=== PATIENT | female | born 1965 | race Caucasian/White ===

== ENCOUNTER → 2020-11-07 11:55 | Outpatient (BNVA) | payer OTHER, SELFPAY | PROVIDERS: Family Provider Internal Medicine; PCP Internal Medicine; Visit Provider Obstetrics & Gynecology | DX: Z01.419 Encounter for gynecological examination (general) (routine) without abnormal findings (principal) | CPT/HCPCS: 88175 ==

== ENCOUNTER 2025-06-16 22:32 | Emergency (ER) | payer OTHER, SELFPAY ==
[2025-06-16 22:39] VITALS: BP 130/89; PULSE 79; RESP 16; TEMP 36.4; O2SAT 98; BMI 30.4
--- NOTE | 2025-06-16 23:04 | ED_ITS ---
HPI - Skin/Abscess/Foreign Bdy 2 General: Chief complaint: Skin/Abscess/Foreign Body Stated complaint: Possibly celulitis, upper leg rt Time Seen by Provider: 06/16/25 22:46 Source: patient Mode of arrival: ambulatory Limitations: no limitations History of Present Illness: Patient is a 60-year-old female presents emergency department complaining of cellulitis for the past 5 days. States that she was seen at walk-in clinic for redness to her right groin on Wednesday, was started on Augmentin. States since then that the symptoms have gotten worse, she is having worsening pain in the groin, expanding redness, and overall has just felt ill. Does not report any fever but states she has been alternating Motrin and Tylenol so thinks this may be masking the fever. She also reports feeling nauseous but states that she also thinks this might be a side effect of her Augmentin. She has been marking the area of erythema states that she has been noticing it is expanding more rapidly. She thinks Augmentin is not working. Also thinks that may have been a spider bite. MD complaint: other (Cellulitis of right groin region) Onset (ago): day(s) Pain Consistency: other (Getting worse) Associated symptoms: Reports nausea; Deny chills, fever(s) or vomiting Treatments prior to arrival: antibiotic Related Data Home Medications ?Medication ?Instructions ?Recorded ?Confirmed tamoxifen 20 mg tablet 20 mg PO DAILY 11/07/2010/12 Previous Rx's ?Medication ?Instructions ?Recorded clindamycin HCl 300 mg capsule 300 mg PO BID 10 days # 20 caps 06/16/25 Allergies Allergy/AdvReac Type Severity Reaction Status Date / Time Sulfa (Sulfonamide Allergy extreme Verified 11/07/20 10:58 Antibiotics) itchiness, hives Review of Systems 2 General: Reports: 10 or more systems reviewed and unremarkable except in HPI and below Const: Reports: malaise; Denies: fever(s) or chills Card: Denies: chest pain Resp: Denies: dyspnea GI: Reports: nausea; Denies: abdominal pain, vomiting or diarrhea Musc: Denies: extremity pain or joint pain Skin/Breast: Reports: erythema, skin pain, skin tenderness and non-healing lesions; Denies: rash Neuro: Denies: headache(s) PFSH ED 2 PFSH: Medical History Perimenopause Atypical ductal hyperplasia of left breast Found on needle biopsy of the left breast. Excisional biopsy performed with no hyperplasia noted (per patient). Was started on tamoxifen in 07/2017. Surgical History S/P breast biopsy, right (~1985) Status post surgery (~1997) Abdominal wall mass excision. H/O lumpectomy (04/01/17) Dr. Lockett at in [place], [place]. H/O section (04/11/97) Diagnosis: Cephalopelvic disproportion. Performed by Dr. Up at [facility] in [place], [place]. S/P rhinoplasty Family History Other Adopted Social History Smoking and tobacco/nicotine status: never used tobacco/nicotine Alcohol intake: never Substance/Drug Use: never Physical Exam 2 Const: COMMON NORMALS: no acute distress, average body habitus, patient oriented x3, no limitations, healthy appearing, alert and well nourished HENMT: COMMON NORMALS: normocephalic and atraumatic HEAD & SCALP: n ormocephalic and atraumatic Neck/C-Spine: COMMON NORMALS: full ROM, no lymphadenopathy, supple and no meningeal signs Resp: COMMON NORMALS: normal respiratory effort, No use of accessory muscles and clear to auscultation bilaterally AUSCULTATION: clear to auscultation bilaterally Cardio: COMMON NORMALS: regular rate and regular rhythm RATE: regular rate RHYTHM: regular rhythm Extremity: COMMON NORMALS: full ROM and capillary refill normal Neuro: COMMON NORMALS: patient oriented x3 SENSORIUM/ORIENTATION: Yes alert MENINGEAL SIGNS: Yes no meningeal signs Skin: COMMON NORMALS: no wounds and turgor normal NARRATIVE SKIN EXAM: Large area of cellulitis to right groin/proximal thigh anteriorly. Central area of fluctuance with no active drainage. No palpable surrounding lymphadenopathy. GENERAL SKIN EXAM: turgor normal Procedures Abscess I/D Site: other (groin) Side (if applicable): right Local Anesthetic: lidocaine 1% and with epi Amount of anesthesia used (mL): 5 Technique: incised with #11 blade Amount of fluid expressed (mL): 20 Irrigation: Yes Packing used?: none Course 2 Vital Signs: Vital signs: Vital Signs Temperature 97.5 F L 06/16/25 22:39 Pulse Rate 74 06/16/25 23:50 Respiratory Rate 16 06/16/25 23:50 Blood Pressure 124/74 06/16/25 23:50 Pulse Oximetry 94 06/16/25 23:50 Oxygen Delivery Me thod Room Air 06/16/25 22:39 MDM - Skin/Abscess/Foreign Bdy Medicial Decision Making Patient presented with worsening redness and abscess formation to her right groin region after being diagnosed with cellulitis per walk-in clinic on Wednesday and started on Augmentin. Overall feeling ill, did not reporting fevers at home and was noting some nausea but thinks this might have also been from starting the Augmentin. On exam there was a large abscess in the right groin with surrounding cellulitis, which was fluctuant. This was incised with an 11 blade and approximately 20 mL of purulent fluid was expressed. We will also switch to clindamycin, and she is given IV dose here in the emergency department. Pain controlled with morphine, antibiotics sent to pharmacy. Labs were also obtained and reassuring that there was no systemic spread of the infection requiring IV antibiotics in the hospital. Patient feels better after I&D, and will be allowed discharge home with return precautions given. Lab Data 06/16/25 23:09 06/16/25 23:09 Laboratory Results WBC 5.93 10^3/uL (3.29-11.43) 06/16/25 23:09 RBC 4.43 10^6/uL (3.85-5.65) 06/16/25 23:09 Hgb 12.60 g/dL (11.27-16.99) 06/16/25 23:09 Hct 38.3 % (36-47) 06/16/25 23:09 MCV 86.5 fl (85-98) 06/16/25 23:09 MCH 28.4 pg (27-33) 06/16/25 23: MCHC 32.9 g/dL (30-55) 06/16/25 23:09 RDW 13.3 % (12.1-15.1) 06/16/25 23:09 Plt Count 192 10^3/cmm (157-399) 06/16/25 23:09 MPV 9.7 fL (7.4-10.4) 06/16/25 23:09 Neut % (Auto) 69.8 % 06/16/25 23:09 Lymph % (Auto) 21.6 % 06/16/25 23:09 [place] % (Auto) 7.1 % 06/16/25 23:09 Eos % (Auto) 1.0 % 06/16/25 23:09 Baso % (Auto) 0.3 % 06/16/25 23:09 Neut # (Auto) 4.14 10^3/uL (1.8-7.7) 06/16/25 23:09 Lymph # (Auto) 1.3 10^3/uL (0.8-4.8) 06/16/25 23:09 [place] # (Auto) 0.4 10^3/uL (0.2-0.9) 06/16/25 23:09 Eos # (Auto) 0.1 10^3/uL (0.0-0.8) 06/16/25 23:09 Baso # (Auto) 0.0 10^3/uL (0.0-0.1) 06/16/25 23:09 Nucleated RBC % (auto) 0 % 06/16/25 23:09 Nucleated RBCs # 0.0 /100WBC 06/16/25 23:09 ESR 22 mm/hr (0-15) H 06/16/25 23:09 Sodium 140 mmol/L (136-145) 06/16/25 23:09 Potassium 4.0 mmol/L (3.5-5.1) 06/16/25 23:09 Chloride 104 mmol/L (98-107) 06/16/25 23:09 Carbon Dioxide 27 mmol/L (22-29) 06/16/25 23:09 Anion Gap 13.0 (5-19) 06/16/25 23:09 BUN 14 mg/dL (6-20) 06/16/25 23:09 Creatinine 0.9 mg/dL (0.5-0.9) 06/16/25 23:09 GFR Calculation 64.3 mL/min (90-130) L 06/16/25 23:09 Glucose 132 mg/dL (65-115) H 06/16/25 23:09 Calculated Osmolality 292 mOsm/kg (285-295) 06/16/25 23:09 Calcium 9.3 mg/dL (8.5-10.5) 06/16/25 23:09 Total Bilirubin 0.2 mg/dL (0.15-1.2) 06/16/25 23:09 AST 17 U/L (0-32) 06/16/25 23:09 ALT 11 U/L (0-33) 06/16/25 23:09 Alkaline Phosphatase 109 U/L (35-105) H 06/16/25 23:09 C-Reactive Protein 14.7 mg/L (0.0-4.9) H 06/16/25 23:09 Total Protein 7.1 g/dL (6.6-8.7) 06/16/25 23:09 Albumin 3.9 g/dL (3.5-5.2) 06/16/25 23:09 Globulin 3.2 g/dL (1.3-4.6) 06/16/25 23:09 No radiology studies performed this visit Discharge Plan Discharge Patient Disposition: Home Clinical Impression: Abscess of groin, right Condition: Stable Prescriptions: New clindamycin HCl 300 mg capsule 300 mg PO BID 10 Days Qty: 20 0RF No Action tamoxifen 20 mg tablet 20 mg PO DAILY Discharge Orders: Discharge ED (Routine); Ordered 06/16/25 Ordered By: Warren Case Referrals: Caroline Sue PA [Primary Care Provider, [facility]] Patient Instructions: Patient Portal & Gem Instructions Activity Restrictions/Additional Instructions: Abscess Discharge Instructions Diagnosis and Treatment Summary: You were treated in the emergency department for a skin abscess (collection of pus) in your right groin. The abscess was drained with a small incision, and you received intravenous clindamycin. No wound packing was required, as evidence shows that packing does not improve healing and may increase pain for uncomplicated abscesses.[1] https://Paymetric.Orph[employer].com/maryam/article- lookup/doi/10.1093/maryam/jmx448 [2] https://www.nej.org/doi/f ull/10.1056/PERCgg1614063 You are being switched from amoxicillin-clavulanate to clindamycin 300 mg by mouth twice daily for 10 days, as clindamycin is effective against common bacteria causing skin abscesses, including MRSA.[3] https://www.nejm.org/doi/full/10.1056/TFPJpq5069409 [2] https://www.nejm.org/doi/full/10.1056/WVOSlt4222721 A few doses of hydrocodone- acetaminophen were prescribed for breakthrough pain. Wound Care Instructions: - Keep the wound clean and dry. - Change the dressing once daily or if it becomes wet or soiled. Wash your hands before and after touching the wound or changing the dressing. - You may shower, but avoid soaking the wound (no baths, swimming, or hot tubs) until it is fully healed. - Monitor the wound for signs of healing: it should gradually become less red, swollen, and tender over the next several days. Medications: - Clindamycin 300 mg: Take one tablet by mouth every 12 hours for 10 days. Finish the entire course, even if you feel better. - Common side effects include diarrhea, nausea, and rash. If you develop severe diarrhea (especially with blood or mucus), stop the medication and seek medical attention, as this can be a sign of a serious infection called C. difficile. [ 3] https://www.nejm.org/doi/full/10.1056/QMWGfd7406257 - Hydrocodone-acetaminophen ([place]): Take only as needed for severe pain, and do not exceed the prescribed amount. Do not drive or operate heavy machinery while taking this medication. Activity: - Resume normal activities as tolerated, but avoid strenuous exercise or activities that may irritate the wound until it is healed. Follow-Up: - Schedule a follow-up appointment with your primary care provider or as directed within 48?72 hours to assess wound healing and response to antibiotics. [1] https://Paymetric.Orphazyme.com/maryam/article-lookup/doi/10.1093/maryam/wra445 [2] https://www.nejm.org/doi/full/10.1056/PHZLul2719001 Strict Return Precautions: Return to the emergency department or contact your healthcare provider immediately if you experience any of the following: - Increasing redness, swelling, or pain at the wound site - Pus or foul-smelling drainage from the wound - Fever (temperature > 100.4?F / 38?C) or chills - Red streaks spreading from the wound - Difficulty moving your leg or severe pain - Signs of an allergic reaction to medication (rash, swelling, difficulty breathing) - Severe or persistent diarrhea Infection Control: - Wash your hands frequently, especially after touching the wound. - Do not share towels, clothing, or personal items until the wound is fully healed. - Dispose of dressings in a sealed plastic bag. Additional Information: - Antibiotics are not always required after abscess drainage, but are recommended in certain situations, such as abscesses in the groin, presence of systemic symptoms, or risk factors for more severe infection. [1] https://Paymetric.Orph[employer]yme.[employer]/maryam/article-lookup/doi/10.1093/maryam/asb504 [3] https://www.nejm.org/doi/full/10.1056/PJPDob3750544 [2] https://www.nejm.org/doi/full/10.1056/ZMDOjb9901611 - Clindamycin and trimethoprim-sulfamethoxazole are both effective; clindamycin may reduce the risk of new infections but is associated with a higher rate of mild gastrointestinal side effects.[3] https://www.nejm.org/doi/full/10.1056/WAIElf0551944 If you have any questions or concerns, contact your healthcare provider. References * Practice Guidelines for the Diagnosis and Management of Skin and Soft Tissue Infections: 2014 Update by the Infectious Diseases Society of [place] https://Paymetric.Orphaz[employer]/maryam/article-lookup/doi/10.1093/maryam/vyo374 . Silvestre POWERS, Brian AL, Nereida HF, et al. Clinical Infectious Diseases : An Official Publication of the Infectious Diseases Society of [place]. 2014;59(2):147-59. doi:10.1093/maryam/lti824. * Management of Skin Abscesses in the Era of Methicillin-Resistant Staphylococcus aureus https://www.nejm.org/doi/full/10.1056/HECCui4108216 . AJ, Dyllan DA. The [place] Journal of Medicine. 2014;370(11):1039- 47. doi:10.1056/MTVYmi9756577. * A Placebo-Controlled Trial of Antibiotics for Smaller Skin Abscesses https://www.nejm.org/doi/full/10.1056/WMNTmk7507390 . Henrietta RS, Alcala LG, Dominga L, et al. The [place] Journal of Medicine. 2017;376(26):2545- 2555. doi:10.1056/FCTPqb4082683. Print Language: Emirati Coding Level of Care Code ED Coat Feller for Parag Llanos
[2025-06-16 23:14] LABS: Hematocrit 38.3 % (36-47); Hemoglobin 12.60 g/dL (11.27-16.99); Mean Corpuscular HGB Conc 32.9 g/dL (30-55); Mean Corpuscular Hemoglobin 28.4 pg (27-33); Mean Corpuscular Volume 86.5 fl (85-98); Nucleated Red Blood Cells % 0 %; Platelet Count 192 10^3/cmm (157-399); Red Blood Count 4.43 10^6/uL (3.85-5.65); White Blood Count 5.93 10^3/uL (3.29-11.43)
[2025-06-16] MEDS: ondansetron 2 mg/ML SDV 2 mL 4 MG IVP (23:17)
[2025-06-16] MEDS: morphine 4 mg/mL SDV 1 mL IVP (23:18)
[2025-06-16 23:21] VITALS: BP 132/81; PULSE 72; RESP 16; O2SAT 95
[2025-06-16 23:32] LABS: Alanine Aminotransferase 11 U/L (0-33); Albumin Level 3.9 g/dL (3.5-5.2); Alkaline Phosphatase 109 U/L (35-105); Anion Gap 13.0 (5-19); Aspartate Amino Transferase 17 U/L (0-32); Blood Urea Nitrogen 14 mg/dL (6-20); Calcium 9.3 mg/dL (8.5-10.5); Carbon Dioxide 27 mmol/L (22-29); Chloride 104 mmol/L (98-107); Creatinine Clr Calc Pharmacy 67.3844; Globulin 3.2 g/dL (1.3-4.6); Glucose 132 mg/dL (65-115); Osmolality Calculated 292 mOsm/kg (285-295); Potassium 4.0 mmol/L (3.5-5.1); Sodium 140 mmol/L (136-145); Total Protein 7.1 g/dL (6.6-8.7)
[2025-06-16 23:50] VITALS: BP 124/74; PULSE 74; RESP 16; O2SAT 94
== END 2025-06-16 23:58 | disposition home or self-care (01) ==
PROVIDERS: Emergency Provider Physician Assistant; PCP Physician Assistant
DX: L02.214 Cutaneous abscess of groin (principal)
CPT/HCPCS: 10060; 36415; 80053; 85025; 85651; 86140; 96374; 96375; 99284; J2270; J2405; J3490

== ENCOUNTER 2025-07-20 13:49 | Emergency (ER) | payer OTHER, SELFPAY ==
[2025-07-20 13:52] VITALS: BP 114/67; PULSE 121; RESP 18; TEMP 36.6; O2SAT 99
--- NOTE | 2025-07-20 15:46 | CTR_ITS ---
PROCEDURE INFORMATION: Exam: CT Abdomen And Pelvis With Contrast Exam date and time: 07/20/2025 4:29 PM Age: 60 years old Clinical indication: Other: Diffuse abd pain/diarrhea TECHNIQUE: Imaging protocol: Computed tomography of the abdomen and pelvis with contrast. Radiation optimization: All CT scans at this facility use at least one of these dose optimization techniques: automated exposure control; mA and/or kV adjustment per patient size (includes targeted exams where dose is matched to clinical indication); or iterative reconstruction. Contrast material: OMNI 350; Contrast volume: 100 ml; Contrast route: INTRAVENOUS (IV); COMPARISON: CR XR chest 2V* [id number] 03/21/2019 12:45 PM RADIATION DOSE METRICS: Total DLP (mGy-cm): 714.67 FINDINGS: Liver: Subcentimeter hepatic hypodensities are too small to characterize. Gallbladder and biliary ducts: Two non dependent 4 mm densities are noted in the gallbladder lumen. No pericholecystic inflammatory changes. There is no evidence of biliary ductal dilation. Pancreas: The pancreas is normal. No mass. Spleen: The spleen is normal. Adrenal glands: Normal. No mass. Kidneys and ureters: Subcentimeter right renal cyst. No suspicious renal mass. No hydronephrosis. Stomach and bowel: Diffuse colonic mural thickening most marked in the rectosigmoid. Moderate fat stranding surrounds the thickened portions of the distal sigmoid colon and rectum. No pericolonic fluid collection to suggest abscess. Bowel caliber is normal. Appendix: Normal appendix. Intraperitoneal space: No free intraperitoneal fluid or gas. Moderate presacral edema is present relating to rectum inflammation. Vasculature: Aortic caliber is normal. Lymph nodes: Unremarkable. No enlarged lymph nodes. Urinary bladder: Mild, nonspecific bladder wall thickening, which may be due to underdistention. Reproductive: Uterus is unremarkable. No suspicious adnexal lesion seen. Bones/joints: No acute abnormality. Soft tissues: Unremarkable. CT/CT abdomen pelvis w con* [id number] IMPRESSION: 1. Pancolitis, most marked in the rectosigmoid region. Inflammatory and infectious etiologies should be considered. 2. Two non dependent 4 mm densities are noted in the gallbladder lumen. Gallbladder polyps are likely, which should be confirmed with non emergent ultrasound. 3. Subcentimeter hepatic hypodensities are too small to characterize. In a low-risk patient, this is most likely to be benign and no further follow-up is recommended. In a high-risk patient, follow-up MRI in 3-6 months is recommended (or earlier if warranted by the patient's specific clinical circumstances). (Reference: Theresa) COMMENTS: Consistent with the [place] [employer]'s Incidental Findings Committee white paper (J Am Gunnar Radiol 2018): Any incidental renal lesion less than 1 cm or classified as too small to characterize, or any incidental cystic renal lesion characterized as simple-appearing, is likely benign. No follow-up imaging is recommended for these lesions per consensus recommendations based on imaging criteria. REFERENCES: Theresa VICTORIA, et al. Management of Incidental Liver Lesions on CT: A White Paper of the ACR Incidental Findings Committee. J Am Gunnar Radiol. 2017;14(11):9590-5176.
--- NOTE | 2025-07-20 15:50 | ED_ITS ---
Documented by User: KALIA Loomis 07/21/25 00:47 HPI - Abdominal Pain 2 General: Chief Complaint: Abdominal Pain Stated Complaint: N,D ABD Pain Time Seen by Provider: 07/20/25 15:08 Source: patient Mode of arrival: ambulatory Limitations: no limitations History of Present Illness: Patient is a 60-year-old female with no significant pertinent past medical history reporting to the emergency department complaining of abdominal cramping and diarrhea for the past 3 days. States that the diarrhea has appeared very mucousy and she has had 2 many episodes to count. Denies any vomiting, but notes persistent nausea. She has been on multiple different antibiotics recently secondary to cellulitis and previous abscess, of which she was seen here in the emergency department for. Recently she notes that she has been running elevated temperatures, she is afebrile at this time. Denies any sick contact exposure. States that the abdominal pain is diffuse and will move around. History of section but no other abdominal surgeries reported. States that anytime she eats or drinks something it will exacerbate her diarrhea. She is tachycardic with triage, appearing in mild acute distress secondary to abdominal symptoms, and states she has had 2 episodes of diarrhea since coming into the emergency department. Otherwise nontoxic-appearing. Further denies any chest pain, shortness of breath, hematochezia or melena, or chills. MD elicited complaint: abdominal pain and other (Nausea/diarrhea) Pertinent past history: none Onset (ago): day(s) (3) Pain Consistency: constant Location: Diffuse Severity: moderate Quality: cramping Radiation: none Migration to: no migration Exacerbating factors: eating and other (Drinking) Relieving factors: nothing Context: recent antibiotic use Associated Symptoms: Reports change in stool character, GI cramping, diarrhea, fever(s) and nausea; Denies bloating, chills, constipation, dysuria, hematochezia, melena and vomiting Related Data Home Medications ?Medication ?Instructions ?Recorded ?Confirmed loratadine 10 mg tablet (Claritin) 10 mg PO DAILY PRN allergies 07/20/25 07/20/25 Previous Rx's ?Medication ?Instructions ?Recorded ondansetron 4 mg disintegrating 4 mg PO TID PRN nausea and 07/20/25 tablet vomiting #60 tabs vancomycin 125 mg capsule 125 mg PO Q6H 10 days #40 ca ps 07/20/25 Allergies Allergy/AdvReac Type Severity Reaction Status Date / Time Sulfa (Sulfonamide Allergy extreme Verified 11/07/20 10:58 Antibiotics) itchiness, hives Review of Systems 2 General: Reports: 10 or more systems reviewed and unremarkable except in HPI and below Const: Reports: fever(s) and change in appetite; Denies: chills, change in weight, fatigue, malaise or diaphoresis ENMT: Denies: throat pain or hoarseness Card: Denies: chest pain, palpitations or lightheadedness Resp: Denies: dyspnea, productive cough or wheezing GI: Reports: abdominal pain, nausea, diarrhea, GI cramping, change in stool character and mucus in stool; Denies: vomiting, constipation, bloating, hematochezia or melena : Denies: flank pain, difficulty voiding, dysuria, urinary frequency or urinary urgency Musc: Denies: neck pain or back pain Skin/Breast: Denies: rash or new lesions Neuro: Denies: headache(s) or dizziness PFSH ED 2 PFSH: Medical History Perimenopause Atypical ductal hyperplasia of left breast Found on needle biopsy of the left breast. Excisional biopsy performed with no hyperplasia noted (per patient). Was started on tamoxifen in 07/2017. Surgical History S/P breast biopsy, right (~1985) Status post surgery (~1997) Abdominal wall mass excision. H/O lumpectomy (04/01/17) Dr. Lockett at [facility] in [place], [place]. H/O section (04/11/97) Diagnosis: Cephalopelvic disproportion. [place] [facility] [place] S/P rhinoplasty Family History Other Adopted Social History Smoking and tobacco/nicotine status: never used tobacco/nicotine Alcohol intake: never Substance/Drug Use: never Physical Exam 2 Const: COMMON NORMALS: average body habitus, patient oriented x3, no limitations, healthy appearing, alert and well nourished GENERAL APPEARANCE: cooperative ORIENTATION/CONSCIOUSNESS: Yes awake OTHER: Mild distress secondary to abdominal cramping, otherwise nontoxic-appearing Neck/C-Spine: COMMON NORMALS: full ROM, supple and no meningeal signs Resp: COMMON NORMALS: normal respiratory effort, No retractions, No use of accessory muscles and clear to auscultation bilaterally AUSCULTATION: clear to auscultation bilaterally, no crackles, no rales, no rhonchi and no wheezes Cardio: COMMON NORMALS: regular rate, regular rhythm, No gallops present (Cardio), No clicks present (Cardio), No murmurs present (Cardio) and No rub (Cardio) RATE: regular rate RHYTHM: regular rhythm GI: COMMON NORMALS: Normal to inspection, nondistended, normoactive bowel sounds present, Soft to palpation, No hepatosplenomegaly present and no masses AUSCULTATION: Yes normoactive bowel sounds PALPATION: Yes Soft to palpation, Yes Tenderness to palpation present (GI) (Mild diffuse), No Guarding due to palpation present (GI), No Rigid due to palpation and Yes No hepatosplenomegaly present RECTAL EXAM: deferred Extremity: COMMON NORMALS: normal to inspection and full ROM Neuro: COMMON NORMALS: patient oriented x3, moves all extremities, no focal motor deficits and no sensory deficits noted SENSORIUM/ORIENTATION: Yes alert MENINGEAL SIGNS: Yes no meningeal signs Psych: COMMON NORMALS: mental status grossly normal, cooperative and speech normal SPEECH: Yes normal speech Skin: COMMON NORMALS: no rashes or lesions noted GENERAL SKIN EXAM: no rashes or lesions noted Course 2 Vital Signs: Vital signs: Vital Signs Temperature 97.9 F 07/20/25 13:52 Pulse Rate 104 H 07/20/25 18:39 Respiratory Rate 16 07/20/25 17:25 Blood Pressure 151/91 07/20/25 18:39 Pulse Oximetry 98 07/20/25 18:39 Oxygen Delivery Me thod Room Air 07/20/25 13:52 MDM - Abdominal Pain Medical Decision Making This patient presents to the emergency department with persistent diarrhea and abdominal cramping, notable history for frequent antibiotic use over the past month or so for cellulitis and abscess of the groin. Tachycardic on arrival and mildly ill-appearing though heart rate improves after fluids as I suspect element of hypovolemia. However metabolic panel does not show any significant electrolyte derangement, her white blood cell count is not significantly elevated. Urinalysis is clean. However stool sample is showing positivity for C. difficile, and she will be started on appropriate regimen of vancomycin p.o. CT is showing pancolitis with no other acute process. She does feel safe for discharge home and feels better after fluids and nausea medications here, I will send nausea medications to the pharmacy. She is given strict return precautions, and all of the questions and concerns addressed at this time. Lab Data 07/20/25 16:08 07/20/25 16:08 Labs/Radiology: Radiology Impressions Abdomen/Pelvis CT 07/20/25 15:46 IMPRESSION: 1. Pancolitis, most marked in the rectosigmoid region. Inflammatory and infectious etiologies should be considered. 2. Two non dependent 4 mm densities are noted in the gallbladder lumen. Gallbladder polyps are likely, which should be confirmed with non emergent ultrasound. 3. Subcentimeter hepatic hypodensities are too small to characterize. In a low-risk patient, this is most likely to be benign and no further follow-up is recommended. In a high-risk patient, follow-up MRI in 3-6 months is recommended (or earlier if warranted by the patient's specific clinical circumstances). (Reference: Theresa) COMMENTS: Consistent with the [employer]'s Incidental Findings Committee white paper (J Am Gunnar Radiol 2018): Any incidental renal lesion less than 1 cm or classified as too small to characterize, or any incidental cystic renal lesion characterized as simple-appearing, is likely benign. No follow-up imaging is recommended for these lesions per consensus recommendations based on imaging criteria. REFERENCES: Theresa VICTORIA, et al. Management of Incidental Liver Lesions on CT: A White Paper of the ACR Incidental Findings Committee. J Am Gunnar Radiol. 2017;14(11):9468-1119. Laboratory Results WBC 9.07 10^3/uL (3.29-11.43) 07/20/25 16:08 Corrected WBC Cancelled 07/20/25 14:35 RBC 5.00 10^6/uL (3.85-5.65) 07/20/25 16:08 Hgb 14.10 g/dL (11.27-16.99) 07/20/25 16:08 Hct 42.5 % (36-47) 07/20/25 16:08 MCV 85.0 fl (85-98) 07/20/25 16:08 MCH 28.2 pg (27-33) 07/20/25 16:08 MCHC 33.2 g/dL (30-55) 07/20/25 16:08 RDW 13.4 % (12.1-15.1) 07/20/25 16:08 Plt Count 180 10^3/cmm (157-399) 07/20/25 16:08 MPV 9.8 fL (7.4-10.4) 07/20/25 16:08 Gran % Cancelled 07/20/25 14:35 Neut % (Auto) 87.0 % 07/20/25 16:08 Lymph % (Auto) 6.2 % 07/20/25 16:08 Terry % (Auto) 6.3 % 07/20/25 16:08 Eos % (Auto) 0.0 % 07/20/25 16:08 Baso % (Auto) 0.3 % 07/20/25 16:08 Neut # (Auto) 7.89 10^3/uL (1.8-7.7) H 07/20/25 16:08 Lymph # (Auto) 0.6 10^3/uL (0.8-4.8) L 07/20/25 16:08 Terry # (Auto) 0.6 10^3/uL (0.2-0.9) 07/20/25 16:08 Eos # (Auto) 0.0 10^3/uL (0.0-0.8) 07/20/25 16:08 Baso # (Auto) 0.0 10^3/uL (0.0-0.1) 07/20/25 16:08 Absolute Gran (auto) Cancelled 07/20/25 14:35 Nucleated RBC % (auto) 0 % 07/20/25 16:08 Nucleated RBCs # 0.0 /100WBC 07/20/25 16:08 Sodium 139 mmol/L (136-145) 07/20/25 16:08 Potassium 3.6 mmol/L (3.5-5.1) 07/20/25 16:08 Chloride 104 mmol/L (98-107) 07/20/25 16:08 Carbon Dioxide 16 mmol/L (22-29) L 07/20/25 16:08 Anion Gap 22.6 (5-19) H 07/20/25 16:08 BUN 18 mg/dL (6-20) 07/20/25 16:08 Creatinine 0.7 mg/dL (0.5-0.9) 07/20/25 16:08 GFR Calculation 85.9 mL/min (90-130) L 07/20/25 16:08 Glucose 93 mg/dL (65-115) 07/20/25 16:08 Calculated Osmolality 290 mOsm/kg (285-295) 07/20/25 16:08 Calcium 9.1 mg/dL (8.5-10.5) 07/20/25 16:08 Total Bilirubin 0.4 mg/dL (0.15-1.2) 07/20/25 16:08 AST 20 U/L (0-32) 07/20/25 16:08 ALT 12 U/L (0-33) 07/20/25 16:08 Alkaline Phosphatase 99 U/L (35-105) 07/20/25 16:08 Total Protein 7.0 g/dL (6.6-8.7) 07/20/25 16:08 Albumin 3.9 g/dL (3.5-5.2) 07/20/25 16:08 Globulin 3.1 g/dL (1.3-4.6) 07/20/25 16:08 Lipase 13 U/L (13-60) 07/20/25 16:08 Urine Color Yellow (Yellow) 07/20/25 17:03 Urine Appearance Clear (CLEAR) 07/20/25 17:03 Urine pH 5.5 (5-7) 07/20/25 17:03 Ur Specific [place] 1.075 (1.005-1.030) H 07/20/25 17:03 Urine Protein 1+ (Negative) A 07/20/25 17:03 Urine Glucose (UA) Negative (Normal) 07/20/25 17:03 Urine Ketones 4+ (Negative) 07/20/25 17:03 Urine Blood Trace (Negative) A 07/20/25 17:03 Urine Nitrate Negative (Negative) 07/20/25 17:03 Urine Bilirubin Negative (Negative) 07/20/25 17:03 Urine Urobilinogen 0.2 mg/dL (Negative) 07/20/25 17:03 Ur Leukocyte Esterase Negative (Negative) 07/20/25 17:03 Urine RBC 0-4 /hpf (0-2) H 07/20/25 17:03 Urine WBC 0-4 /hpf (0-5) H 07/20/25 17:03 Ur Squamous Epith Cells 15-25 /hpf (0-5) H 07/20/25 17:03 Amorphous Sediment Not Reportable 07/20/25 17:03 Urine Bacteria Trace /hpf (NONE) 07/20/25 17:03 C. difficile (PCR) Positive (Negative) H 07/20/25 17:03 C.difficile Tox Confrm Positive (Negative) H 07/20/25 17:03 Influenza A (PCR) Negative (Negative) 07/20/25 15:44 Influenza Type B (PCR) Negative (Negative) 07/20/25 15:44 RSV (PCR) Negative (Negative) 07/20/25 15:44 SARS-CoV-2 (PCR) Negative (Negative) 07/20/25 15:44 All radiology interpretation(s) finalized by discharge Discharge Plan Discharge Patient Disposition: Home Clinical Impression: C. difficile colitis Condition: Stable Prescriptions: New vancomycin 125 mg capsule 125 mg PO Q6H 10 Days Qty: 40 0RF ondansetron 4 mg tablet,disintegrating 4 mg PO TID PRN (Reason: nausea and vomiting) Qty: 60 0RF No Action loratadine [Claritin] 10 mg Tablet 10 mg PO DAILY PRN (Reason: allergies) Discharge Orders: Discharge ED (Routine); Ordered 07/20/25 Ordered By: Warren Case Referrals: Caroline Sue PA [Primary Care Provider, [facility]] Patient Instructions: Patient Portal & Gem Instructions Activity Restrictions/Additional Instructions: C. difficile Discharge Instructions You have been diagnosed with Clostridioides difficile colitis, a type of infection in your colon that causes diarrhea and abdominal discomfort. This infection is often linked to recent antibiotic use or hospital stays, which can upset the normal balance of bacteria in your gut and allow C. difficile to grow. Treatment Plan: - Take oral vancomycin 125 mg by mouth four times a day for 10 days. Finish the entire course, even if you start feeling better. - For nausea, take ondansetron (Zofran) 4 mg as prescribed. - If you have pain, you may use acetaminophen (Tylenol) as needed. Avoid medications like ibuprofen unless approved by your doctor, and do not use anti- diarrheal medicines (like loperamide) unless specifically instructed, as these can worsen your condition. Symptom Management: - Drink plenty of fluids to prevent dehydration. - Eat small, bland meals (such as rice, bananas, toast) until your symptoms improve. - Rest as needed. Infection Control and Contact Precautions: - Wash your hands often with soap and water, especially after using the bathroom and before eating. Alcohol-based hand sanitizers are less effective against C. difficile spores. - Clean surfaces in your home (like toilets, sinks, and doorknobs) with a bleach-based grain cleaner. - Use a separate bathroom if possible. If sharing, clean it after each use. - Family members and caregivers should wear gloves when helping with personal care and wash hands thoroughly afterward. About Clostridioides difficile: - C. difficile is a bacterium that can cause diarrhea and more serious colon problems. It spreads easily in healthcare settings and through contaminated surfaces. - The infection often happens after taking antibiotics, which can kill good bacteria and let C. difficile grow. - Most people recover with proper treatment, but some may have recurrences. Let your doctor know if symptoms return after finishing your medication. When to Seek Help: - Call your doctor or go to the emergency room if you have severe abdominal pain, blood in your stool, high fever, or signs of dehydration (such as dizziness, dry mouth, or not urinating). Prevention Tips: - Only take antibiotics when necessary and as prescribed. - Practice good hand hygiene. - Clean shared surfaces regularly. If you have any questions or concerns, contact your healthcare provider. Print Language: Togolese Coding Level of Care Code ED Mobile [employer] Fwd Documented by User: Spencer Mckeon DO 07/21/25 05:59 HPI - Abdominal Pain 2 General: Chief Complaint: Abdominal Pain Stated Complaint: N,D ABD Pain Time Seen by Provider: 07/20/25 15:08 Related Data Home Medications ?Medication ?Instructions ?Recorded ?Confirmed loratadine 10 mg tablet (Claritin) 10 mg PO DAILY PRN allergies 07/20/25 07/20/25 Previous Rx's ?Medication ?Instructions ?Recorded ondansetron 4 mg disintegrating 4 mg PO TID PRN nausea and 07/20/25 tablet vomiting #60 tabs vancomycin 125 mg capsule 125 mg PO Q6H 10 days #40 ca ps 07/20/25 Allergies Allergy/AdvReac Type Severity Reaction Status Date / Time Sulfa (Sulfonamide Allergy extreme Verified 11/07/20 10:58 Antibiotics) itchiness, hives PFSH ED 2 PFSH: Medical History Perimenopause Atypical ductal hyperplasia of left breast Found on needle biopsy of the left breast. Excisional biopsy performed with no hyperplasia noted (per patient). Was started on tamoxifen in 07/2017. Surgical History S/P breast biopsy, right (~1985) Status post surgery (~1997) Abdominal wall mass excision. H/O lumpectomy (04/01/17) Dr. Lockett at [facility] in [place], [place]. H/O section (04/11/97) Diagnosis: Cephalopelvic disproportion. [place] [facility] [place] S/P rhinoplasty Family History Other Adopted Social History Smoking and tobacco/nicotine status: never used tobacco/nicotine Alcohol intake: never Substance/Drug Use: never Course 2 Vital Signs: Vital signs: Vital Signs Temperature 97.9 F 07/20/25 13:52 Pulse Rate 104 H 07/20/25 18:39 Respiratory Rate 16 07/20/25 17:25 Blood Pressure 151/91 07/20/25 18:39 Pulse Oximetry 98 07/20/25 18:39 Oxygen Delivery Me thod Room Air 07/20/25 13:52 MDM - Abdominal Pain Medical Decision Making This patient presents to the emergency department with persistent diarrhea and abdominal cramping, notable history for frequent antibiotic use over the past month or so for cellulitis and abscess of the groin. Tachycardic on arrival and mildly ill-appearing though heart rate improves after fluids as I suspect element of hypovolemia. However metabolic panel does not show any significant electrolyte derangement, her white blood cell count is not significantly elevated. Urinalysis is clean. However stool sample is showing positivity for C. difficile, and she will be started on appropriate regimen of vancomycin p.o. CT is showing pancolitis with no other acute process. She does feel safe for discharge home and feels better after fluids and nausea medications here, I will send nausea medications to the pharmacy. She is given strict return precautions, and all of the questions and concerns addressed at this time. Chart reviewed and patient discussed with midlevel. Agree with assessment and plan. Lab Data 07/20/25 16:08 07/20/25 16:08 Labs/Radiology: Radiology Impressions Abdomen/Pelvis CT 07/20/25 15:46 IMPRESSION: 1. Pancolitis, most marked in the rectosigmoid region. Inflammatory and infectious etiologies should be considered. 2. Two non dependent 4 mm densities are noted in the gallbladder lumen. Gallbladder polyps are likely, which should be confirmed with non emergent ultrasound. 3. Subcentimeter hepatic hypodensities are too small to characterize. In a low-risk patient, this is most likely to be benign and no further follow-up is recommended. In a high-risk patient, follow-up MRI in 3-6 months is recommended (or earlier if warranted by the patient's specific clinical circumstances). (Reference: Theresa) COMMENTS: Consistent with the [employer]'s Incidental Findings Committee white paper (J Am Gunnar Radiol 2018): Any incidental renal lesion less than 1 cm or classified as too small to characterize, or any incidental cystic renal lesion characterized as simple-appearing, is likely benign. No follow-up imaging is recommended for these lesions per consensus recommendations based on imaging criteria. REFERENCES: Theresa VICTORIA, et al. Management of Incidental Liver Lesions on CT: A White Paper of the ACR Incidental Findings Committee. J Am Gunnar Radiol. 2017;14(11):1181-9205. Laboratory Results WBC 9.07 10^3/uL (3.29-11.43) 07/20/25 16:08 Corrected WBC Cancelled 07/20/25 14:35 RBC 5.00 10^6/uL (3.85-5.65) 07/20/25 16:08 Hgb 14.10 g/dL (11.27-16.99) 07/20/25 16:08 Hct 42.5 % (36-47) 07/20/25 16:08 MCV 85.0 fl (85-98) 07/20/25 16:08 MCH 28.2 pg (27-33) 07/20/25 16:08 MCHC 33.2 g/dL (30-55) 07/20/25 16:08 RDW 13.4 % (12.1-15.1) 07/20/25 16:08 Plt Count 180 10^3/cmm (157-399) 07/20/25 16:08 MPV 9.8 fL (7.4-10.4) 07/20/25 16:08 Gran % Cancelled 07/20/25 14:35 Neut % (Auto) 87.0 % 07/20/25 16:08 Lymph % (Auto) 6.2 % 07/20/25 16:08 Terry % (Auto) 6.3 % 07/20/25 16:08 Eos % (Auto) 0.0 % 07/20/25 16:08 Baso % (Auto) 0.3 % 07/20/25 16:08 Neut # (Auto) 7.89 10^3/uL (1.8-7.7) H 07/20/25 16:08 Lymph # (Auto) 0.6 10^3/uL (0.8-4.8) L 07/20/25 16:08 Terry # (Auto) 0.6 10^3/uL (0.2-0.9) 07/20/25 16:08 Eos # (Auto) 0.0 10^3/uL (0.0-0.8) 07/20/25 16:08 Baso # (Auto) 0.0 10^3/uL (0.0-0.1) 07/20/25 16:08 Absolute Gran (auto) Cancelled 07/20/25 14:35 Nucleated RBC % (auto) 0 % 07/20/25 16:08 Nucleated RBCs # 0.0 /100WBC 07/20/25 16:08 Sodium 139 mmol/L (136-145) 07/20/25 16:08 Potassium 3.6 mmol/L (3.5-5.1) 07/20/25 16:08 Chloride 104 mmol/L (98-107) 07/20/25 16:08 Carbon Dioxide 16 mmol/L (22-29) L 07/20/25 16:08 Anion Gap 22.6 (5-19) H 07/20/25 16:08 BUN 18 mg/dL (6-20) 07/20/25 16:08 Creatinine 0.7 mg/dL (0.5-0.9) 07/20/25 16:08 GFR Calculation 85.9 mL/min (90-130) L 07/20/25 16:08 Glucose 93 mg/dL (65-115) 07/20/25 16:08 Calculated Osmolality 290 mOsm/kg (285-295) 07/20/25 16:08 Calcium 9.1 mg/dL (8.5-10.5) 07/20/25 16:08 Total Bilirubin 0.4 mg/dL (0.15-1.2) 07/20/25 16:08 AST 20 U/L (0-32) 07/20/25 16:08 ALT 12 U/L (0-33) 07/20/25 16:08 Alkaline Phosphatase 99 U/L (35-105) 07/20/25 16:08 Total Protein 7.0 g/dL (6.6-8.7) 07/20/25 16:08 Albumin 3.9 g/dL (3.5-5.2) 07/20/25 16:08 Globulin 3.1 g/dL (1.3-4.6) 07/20/25 16:08 Lipase 13 U/L (13-60) 07/20/25 16:08 Urine Color Yellow (Yellow) 07/20/25 17:03 Urine Appearance Clear (CLEAR) 07/20/25 17:03 Urine pH 5.5 (5-7) 07/20/25 17:03 Ur Specific [place] 1.075 (1.005-1.030) H 07/20/25 17:03 Urine Protein 1+ (Negative) A 07/20/25 17:03 Urine Glucose (UA) Negative (Normal) 07/20/25 17:03 Urine Ketones 4+ (Negative) 07/20/25 17:03 Urine Blood Trace (Negative) A 07/20/25 17:03 Urine Nitrate Negative (Negative) 07/20/25 17:03 Urine Bilirubin Negative (Negative) 07/20/25 17:03 Urine Urobilinogen 0.2 mg/dL (Negative) 07/20/25 17:03 Ur Leukocyte Esterase Negative (Negative) 07/20/25 17:03 Urine RBC 0-4 /hpf (0-2) H 07/20/25 17:03 Urine WBC 0-4 /hpf (0-5) H 07/20/25 17:03 Ur Squamous Epith Cells 15-25 /hpf (0-5) H 07/20/25 17:03 Amorphous Sediment Not Reportable 07/20/25 17:03 Urine Bacteria Trace /hpf (NONE) 07/20/25 17:03 C. difficile (PCR) Positive (Negative) H 07/20/25 17:03 C.difficile Tox Confrm Positive (Negative) H 07/20/25 17:03 Influenza A (PCR) Negative (Negative) 07/20/25 15:44 Influenza Type B (PCR) Negative (Negative) 07/20/25 15:44 RSV (PCR) Negative (Negative) 07/20/25 15:44 SARS-CoV-2 (PCR) Negative (Negative) 07/20/25 15:44 Discharge Plan Discharge Patient Disposition: Home Clinical Impression: C. difficile colitis Condition: Stable Prescriptions: New vancomycin 125 mg capsule 125 mg PO Q6H 10 Days Qty: 40 0RF ondansetron 4 mg tablet,disintegrating 4 mg PO TID PRN (Reason: nausea and vomiting) Qty: 60 0RF No Action loratadine [Claritin] 10 mg Tablet 10 mg PO DAILY PRN (Reason: allergies) Discharge Orders: Discharge ED (Routine); Ordered 07/20/25 Ordered By: Warren Case Referrals: Caroline Sue PA [Primary Care Provider, [facility]] Patient Instructions: Patient Portal & Gem Instructions Activity Restrictions/Additional Instructions: C. difficile Discharge Instructions You have been diagnosed with Clostridioides difficile colitis, a type of infection in your colon that causes diarrhea and abdominal discomfort. This infection is often linked to recent antibiotic use or hospital stays, which can upset the normal balance of bacteria in your gut and allow C. difficile to grow. Treatment Plan: - Take oral vancomycin 125 mg by mouth four times a day for 10 days. Finish the entire course, even if you start feeling better. - For nausea, take ondansetron (Zofran) 4 mg as prescribed. - If you have pain, you may use acetaminophen (Tylenol) as needed. Avoid medications like ibuprofen unless approved by your doctor, and do not use anti- diarrheal medicines (like loperamide) unless specifically instructed, as these can worsen your condition. Symptom Management: - Drink plenty of fluids to prevent dehydration. - Eat small, bland meals (such as rice, bananas, toast) until your symptoms improve. - Rest as needed. Infection Control and Contact Precautions: - Wash your hands often with soap and water, especially after using the bathroom and before eating. Alcohol-based hand sanitizers are less effective against C. difficile spores. - Clean surfaces in your home (like toilets, sinks, and doorknobs) with a bleach-based grain cleaner. - Use a separate bathroom if possible. If sharing, clean it after each use. - Family members and caregivers should wear gloves when helping with personal care and wash hands thoroughly afterward. About Clostridioides difficile: - C. difficile is a bacterium that can cause diarrhea and more serious colon problems. It spreads easily in healthcare settings and through contaminated surfaces. - The infection often happens after taking antibiotics, which can kill good bacteria and let C. difficile grow. - Most people recover with proper treatment, but some may have recurrences. Let your doctor know if symptoms return after finishing your medication. When to Seek Help: - Call your doctor or go to the emergency room if you have severe abdominal pain, blood in your stool, high fever, or signs of dehydration (such as dizziness, dry mouth, or not urinating). Prevention Tips: - Only take antibiotics when necessary and as prescribed. - Practice good hand hygiene. - Clean shared surfaces regularly. If you have any questions or concerns, contact your healthcare provider. Print Language: Togolese Coding Level of Care Code ED Mobile Disc Jockey for Parag Llanos
[2025-07-20 15:55] VITALS: BP 124/90; PULSE 93; RESP 18; O2SAT 93
[2025-07-20] MEDS: ondansetron 2 mg/ML SDV 2 mL 4 MG IVP ×2 (15:56→18:33)
[2025-07-20 16:15] LABS: Hematocrit 42.5 % (36-47); Hemoglobin 14.10 g/dL (11.27-16.99); Mean Corpuscular HGB Conc 33.2 g/dL (30-55); Mean Corpuscular Hemoglobin 28.2 pg (27-33); Mean Corpuscular Volume 85.0 fl (85-98); Nucleated Red Blood Cells % 0 %; Platelet Count 180 10^3/cmm (157-399); Red Blood Count 5.00 10^6/uL (3.85-5.65); White Blood Count 9.07 10^3/uL (3.29-11.43)
[2025-07-20 16:29] LABS: Respiratory Syncytial Virus Ce NEGATIVE (Negative); SARS-CoV-2 PCR NEGATIVE (Negative)
[2025-07-20 16:34] LABS: Alanine Aminotransferase 12 U/L (0-33); Albumin Level 3.9 g/dL (3.5-5.2); Alkaline Phosphatase 99 U/L (35-105); Blood Urea Nitrogen 18 mg/dL (6-20); Calcium 9.1 mg/dL (8.5-10.5); Carbon Dioxide 16 mmol/L (22-29); Chloride 104 mmol/L (98-107); Creatinine Clr Calc Pharmacy 85.6336; Globulin 3.1 g/dL (1.3-4.6); Glucose 93 mg/dL (65-115); Lipase 13 U/L (13-60); Osmolality Calculated 290 mOsm/kg (285-295); Sodium 139 mmol/L (136-145); Total Protein 7.0 g/dL (6.6-8.7)
[2025-07-20 16:38] LABS: Anion Gap 22.6 (5-19); Aspartate Amino Transferase 20 U/L (0-32); Potassium 3.6 mmol/L (3.5-5.1)
[2025-07-20] MEDS: iohexol 350 mg/mL 500 mL Btl (per mL) IV (16:38)
[2025-07-20 17:16] LABS: Glucose Urine UA Negative (Normal); Nitrate Urine Negative (Negative)
[2025-07-20 17:25] VITALS: BP 146/89; PULSE 100; RESP 16; O2SAT 96
[2025-07-20 17:35] LABS: Specific Gravity, Urine 1.075 (1.005-1.030)
[2025-07-20 17:37] LABS: Add Urine Microscopic? YES; UA Manual Slide Review YES
[2025-07-20 18:06] LABS: C.Diff PCR (Lab) POSITIVE (Negative)
[2025-07-20 18:21] LABS: Clostridioides Difficile Toxin POSITIVE (Negative)
[2025-07-20 18:39] VITALS: BP 151/91; PULSE 104; O2SAT 98
== END 2025-07-20 19:05 | disposition home or self-care (01) ==
PROVIDERS: Emergency Provider Physician Assistant; PCP Physician Assistant
DX: A04.72 Enterocolitis due to Clostridium difficile, not specified as recurrent (principal)
CPT/HCPCS: 74177; 80053; 81001; 83690; 85025; 87045; 87324; 87427; 87449; 87493; 87637; 96361; 96374; 96376; 99285; J2405; J7030; J7040; J9999

== ENCOUNTER 2025-07-22 09:07 | Emergency (ER) | payer SELFPAY ==
--- OUTSIDE RECORDS SUMMARY | 2025-07-22 09:11 | XMS_ITS | Data Portability ---
Author Organization [place] - [facility], [facility], [facility] Address [address] [address] Assessment Encounter Date Assessment Date Assessment LastModified by Organization Details LastModified Time 04/10/2025 04/10/2025 3 view xray right hand- no fx, no dislocation, no soft tissue swelling- independently viewed by me 3 view xray right wrist- no fx, no dislocation, no soft tissue swelling- independently viewed by me [email or web address] Not available 04/11/2025 12:24:49 Plan of Treatment Reminders Order Date Submit Date Provider Last Modified By Organization Details Last Modified Time Details Appointments [facility] 2024 08:20A Anthony Go MD Not available Not available Not available Lab None recorded. Referral dermatolo gist referral 2024 025 [facility], [address] [place], [address], 06/18/2025 11:39:15 primary care provider referral 2024 025 Not available 05/24/2025 13:52:09 ophthalmo logist referral 2024 025 [email or web address] Seun Kay MD, [address] [place], [address], 05/29/2025 11:31:22 Procedures None recorded. Surgeries None recorded. Imaging XR, hand, 3 or more view [address], [address] [facility] [place], [place], [address], 04/11/2025 12:28:12 XR, wrist, 3 or more view [address], [address] [facility] [place], [place], [address], 04/11/2025 12:28:12 Medication Orders amoxicill in 875 mg-potass ium clavulana te 125 mg tablet 2024 025 [id number], [address] [facility] [place], [facility], [place], [address], 06/20/2025 15:05:32 erythromy lala 5 mg/gram (0.5 %) eye ointment 2024 025 [id number], [address] [facility] [place], [facility], [place], [address], 04/10/2025 14:28:33 cephalexi n 500 mg capsule 2024 025 [id number], [address], [facility], [place], [address], 03/29/2025 05:01:07 Patient TargetsNo targets recorded. Patient InstructionsNo instructions recorded. Reason for Referral Primary Care Provider Referr al for Screening for malignant neoplasm of colon Referring Physician: [facility], Encounter Date: 05/24/2025 Edge Trimmer Referral for Hordeolum externum of lower eyelid of left eye Referring Physician: [facility], Encounter Date: 05/24/2025 Flower Planter Referral for S eborrheic keratosis Referring Physician: [facility], Encounter Date: 05/24/2025 Results Created Date Observation Date Name Description Value Unit Range Abnormal Flag Note LastModifiedBy Organization Detail LastModifiedTime 04/12/20 25 04/10/2025 XR, hand, 3 or more view No observ ation record ed. [facility] [address] [place], [address], 04/16/2025 09:53:42 04/12/20 25 04/10/2025 XR, wrist , 3 or more view No observ ation record ed. [email or web address] [facility] [address] [place], [address], 04/16/2025 09:53:43 Result Notes None recorded. Problems Name Problem SNOMED Code Status Onset Date Resolution Date Notes Provider Name and Address Organization Details Recorded Time Lumpecto my of breast Completed 202003/17/2025 Lumpectom y; right breast; 1 7:29AM by Ariane Blancas RN, Office Visit; Promoted; acuity set as *; MIRYAM renner [facility] 5 11:03:59 Benign paroxysm al position al vertigo [id number] Completed 202203/17/[address] [facility] 5 11:03:55 Problem Notes None recorded. Procedures Surgical History Date Name Laterality Status Provider Name and Address Organization Details Recorded Time 4 Most Recent Mammogram completed CAROLINE SUE PA-C [address], [place], , [facility] 05/24/2025 10:22:44 3 Date of Last Pap Smear completed CAROLINE SUE PA-C [address], [place], , [facility] 05/24/2025 10:23:12 7 Caesarean Section completed Florina Geiger [facility] 01/28/2024 13:49:44 excision of part of left breast completed CAROLINE SUE PA-C [address] [place], [address], [facility] [place] 05/24/2025 10:21:59 [facility] 13:49:38 operation on nose completed [facility] [place] 01/28/2024 13:49:56 lumpectomy of right breast completed [facility] [place] 01/28/2024 13:50:03 Imaging Results None recorded. Procedure Notes None recorded. Medical Equipment None Reported. Allergies Allergen ID Allergen Name Allergen Category Reaction Reaction Severity Criticality Documentation Date Start Date Code Code System Note Provider Name and Address Organization Details Recorded Time 20749 Substance with sulfonami de structure and antibacte rial mechanism of action (substanc e) medicatio n hives mild low 05/08/2023 15831 8003 SNOMED [facility] 13:47:20 Medications Name Sig Start Date Stop Date Status Note LastModified by Organization Details LastModified Time clindamyc in HCl 300 mg capsule TAKE 1 CAPSULE BY MOUTH TWICE DAILY FOR 10 DAYS active Not Available Not Available No t Available ondansetr on HCl 8 mg tablet TAKE 1 TABLET 3 TIMES A DAY BY MOUTH NEEDED. 01/27 completed Not Available Not Available Not Available Zyrtec 10 mg tablet Take 1 tablet every day by oral route. active Not Available Not Available No t Available cephalexi n 500 mg capsule Take 1 capsule every 6 hours by oral route for 5 days. 03/29 completed Not Available Not Available Not Available erythromy lala 5 mg/gram (0.5 %) eye ointment APPLY 1 CM RIBBON INTO THE LOWER CONJUNCT IVAL SAC(S) IN THE AFFECTED EYE(S) BY OPHTHALM IC ROUTE 3 TIMES PER DAY 04/10 completed Not Available Not Available Not Available tamoxifen 20 mg tablet TAKE 1 TABLET BY MOUTH EVERY DAY 03/31 completed Not Available Not Available Not Available amoxicill in 875 mg-potass ium clavulana te 125 mg tablet TAKE 1 TABLET BY MOUTH EVERY 12 HOURS FOR 7 DAYS 06/20 completed Not Available Not Available Not Available tobramyci n 0.3 %-dexamet hasone 0.1 % eye drops,john paul pension INSTILL 1 DROP INTO LEFT EYE 3 TIMES A DAY 06/20 completed Not Available Not Available Not Available tamoxifen daily 01/27 completed Not Available Not Available Not Available fiber daily 01/27 completed Not Available Not Available Not Available Multivita mins daily active Not Available Not Available Not Available diclofena c 1 % topical gel APPLY 2 GRAMS TO THE AFFECTED AREA(S) 4 TIMES PER DAY 04/10 completed Not Available Not Available Not Available tobramyci n 0.3 %-dexamet hasone 0.05 % eye drops,john paul pension INSTILL 1 DROP INTO AFFECTED EYE(S) BY OPHTHALM IC ROUTE EVERY 6 HOURS active Not Available Not Available No t Available Allergy daily 03/17 completed takes daily during allergy season Not Available Not Available Not Available Vitals Date Recorded Body height Body mass index (BMI) Body weight Respiratory rate Heart rate Oxygen saturation Oxygen saturation in Arterial blood by Pulse oximetry Body temperature Systolic And Diastolic Provider Name and Address Organization Details Last Updated DateTime 5 160.02 cm 30.5 kg/m2 79689.2 9 g 18 /min 70 /min 98 % 98 % 98.1 [degF] 134/76 mm[Hg] MIRYAM JULES [facility] 5 11:07:09 Date Recorded Body height Body mass index (BMI) Body weight Systolic And Diastolic Provider Name and Address Organization Details Last Updated DateTime 04/10/2025 160.02 cm 30.1 kg/m2 14682.7 g 128/68 mm[Hg] Zena Boyd [facility] 04/10/2025 14:33:47 Date Recorded Body height Body mass index (BMI) Body weight Oxygen saturation Oxygen saturation in Arterial blood by Pulse oximetry Heart rate Respiratory rate Body temperature Systolic And Diastolic Provider Name and Address Organization Details Last Updated DateTime 5 160.02 cm 30.6 kg/m2 32379.4 8 g 97 % 97 % 72 /min 18 /min 97.2 [degF] 126/72 mm[Hg] KENDRICK NORTON [facility] 5 10:07:26 Date Recorded Body height Body mass index (BMI) Body weight Respiratory rate Oxygen saturation Oxygen saturation in Arterial blood by Pulse oximetry Heart rate Body temperature Systolic And Diastolic Provider Name and Address Organization Details Last Updated DateTime 5 160.02 cm 31.1 kg/m2 27104.4 6 g 16 /min 97 % 97 % 71 /min 98.3 [degF] 130/70 mm[Hg] ALVARADOJACQUELIN RYDER [facility] 5 10:51:25 Date Recorded Body height Body mass index (BMI) Body weight Oxygen saturation Oxygen saturation in Arterial blood by Pulse oximetry Heart rate Respiratory rate Body temperature Systolic And Diastolic Provider Name and Address Organization Details Last Updated DateTime 5 160.02 cm 30.6 kg/m2 82444.4 8 g 98 % 98 % 70 /min 18 /min 98 [degF] 130/72 mm[Hg] KENDRICK MANCILLAMELQUIADES [facility] 5 14:57:57 Social History Question Answer Notes LastModified by [employer] Details LastModified Time Tobacco Smoking Status Never [facility] 01/28/2024 13:48:06 Are You Blind Or Do You Have Difficulty Seeing? No [email or web address] Information not available 03/31/2023 Are You Deaf Or Do You Have Serious Difficulty Hearing? No [email or web address] Information not available 03/31/2023 What Was The Date Of Your Most Recent Tobacco Screening? 04/10/2025 [email or web address] Information not available 04/10/2025 Do You Have Difficulty Walking Or Climbing Stairs? No [email or web address] Information not available 03/31/2023 Sex: Unknown Functional Status Question Answer Note LastModified by Organizat ion Details LastModified Time Do you use any illicit or recreational drugs? No Information not available 01/28/2024 Do you or have you ever used any other forms of tobacco or nicotine? No [email or web address] Information not available 03/17/2025 What is your level of alcohol consumption? None Information not available 01/28/2024 Are you able to walk independently without assistance or assistive devices? YESWOREST [email or web address] Information not available 03/31/2023 Do you have difficulty doing errands alone? No [email or web address] Information not available 03/31/2023 Are you able to care for yourself independently? Yes [email or web address] Information not available 03/31/2023 Do you have difficulty dressing, bathing, grooming, or toileting? No [email or web address] Information not available 03/31/2023 Do you or have you ever used any nicotine-free cigarettes, vape, or chewing tobacco? No [email or web address] Information not available 06/13/2025 Mental Status Question Answer Note LastModified by Organization D etails LastModified Time Do you have difficulty concentrating, remembering or making decisions? No [email or web address] Information no t available 03/31/2023 Family History Nothing Reported. Medical History Condition Response Coronary Artery Disease N Other N Gout N Kidney Stones N Blood Diseases N Hyperthyroidism N Breast Cancer N Blood Transfusion N Depression N Hypothyroidism N Lung Disease N COPD N Developmental or Behavioral Disorders N Defects or Inherited Disease N Breast Problem N Difficulty Swallowing N Anesthesia Complications N Anxiety Disorder N Meniere's disease N Muscle, Joint, or Bone Problems N Vision or Eye Problems N Arthritis N Infertility N Polyps N Cancer N Stroke N Varicosities N Endometriosis N Bladder or Kidney Problems N High Cholesterol N Liver Disease N Fibromyalgia N Headaches N Kidney Disease N Allergies/Hayfever Y Heart Problems N Ear or Hearing Problems N Hospitalizations N Thyroid Problems N GI Problems N ADD/ADHD N Skin Problems N Eating Disorder N Anemia N Constipation N Mental Illness N Ovarian Cancer N Diabetes N Bedwetting N Seizures/Epilepsy N Tuberculosis N Eczema N Diverticulitis N Abuse/Domestic Violence N Asthma N Reflux/GERD N Hepatitis N Heart Disease N Pulmonary Embolism N Pre-Eclampsia N Hypertension N Chronic Ear Infections N Osteoporosis N Chicken Pox N Autism Spectrum Disorder (ASD) N Thrombophilias N Gynecological History Statement/Question Response Date of Last Pap Smear 12/09/2022 Most Recent Mammogram 07/11/2024 Obstetrics History GPAL:G 0 P 0 0 0 0 Immunizations Vaccine Type Date Status Note Provider Nam e and Address Organization Details Recorded Time Influenza, split virus, trivalent, preservative 7 completed Not Available [facility] 05/08/2023 02:38:01 Past Encounters Encounter ID Performer Location Encounter Start Date Encounter Closed Date Diagnosis/Indication Diagnosis SNOMED-CT Code Diagnosis ICD10 Code Diagnosis IMO Codes Diagnosis Note [id number] Alec Ritter DO [facility] ([facility]) [address] [place] [phone] 5 03/31/2023 10:13:08 03/31/2023 18:14:12 Benign paroxysmal positional vertigo 280329703 H81.10 [id number] CAROLINE SUE PA-C [facility] ([facility]) [address] [place] [phone] 5 01/28/2024 13:39:35 01/28/2024 14:27:41 Right Achilles tendinitis 2540360048 14405 M76.61 massage. ice. rest. handout of foot and calf stretches given to pt.If not better then recommend podiatry referal and/or PT [id number] ALESSIO SIMPSON [facility] ([facility]) [address] [place] [phone] 5 03/17/2025 10:56:51 03/17/2025 17:27:41 Internal hordeolum of left lower eyelid 9142470137 00976 H00.244 [id number] Will start on erythromyc in ointment as prescribed . Patient may start po medication with any increased swelling in the lower lid into under eye area if no improvemen t with ointment. RTC with any new or worsening symptoms. [id number] ALESSIO NOLAND [facility] ([facility]) [address] [place] [address] [phone] 5 04/10/2025 14:23:30 04/11/2025 12:28:12 Pain of right wrist 8863648596 65468 M25.531 591064 Pain of right hand 13470 44657 41117 M79.641 137693 Sprain of ligament of metacarpophalangeal joint of right thumb 9224126820 3764590 S63.641A [id number] No acute fx noted on xray. Pt's pain is localized to her thumb and movement. No snuffbox tenderness . Will apply thumb spica splint, ibuprofen twice a day with food, ice applicatio n for 10 minutes 3 times a day and f/u in 1 week if pain persists. [id number] CAROLINE SUE PA-C [facility] ([facility]) [address] [place] [address] [id number] 5 05/24/2025 10:01:48 05/24/2025 11:01:33 Screening for malignant neoplasm of colon 029242438 Z12.11 362120 [place]oscop [place] [address] Go. Hordeolum externum of lower eyelid of left eye 5751874860 64754 H00.230 [id number] Seborrheic keratosis 394 040218 L82.1 10725 pt desires gen skin check Physical examination 588 0005 Z00.00 [id number] sees telegraph installer for pap [place] [facility] [place] due to hx breast ca. [id number] ALESSIO SIMPSON [facility] ([facility]) [address] [place] [address] [id number] 5 06/13/2025 10:33:16 06/13/2025 11:51:56 Acute cellulitis 6254712278 L03.90 [id number] Abx as prescribed for skin infection. Complete full course. Keep site clean and dry. Wash with mild soap and water. Pat dry RTC with any new or worsening symptoms. Pain of right breast 499 1202056 N64.4 [id number] Has mammogram scheduled for next month at the [facility] breast center and followed by Joao Damon. Advised to call to see if mammogram can be moved up as well as follow up appt. Agrees to plan. [id number] CAROLINE SUE PA-C [facility] ([facility]) [address] [place] [address] [id number] 5 06/20/2025 14:23:33 06/20/2025 15:45:11 Abscess 362794639 L02.91 [id number] ER records reviewed.F inish antibiotic s. Warm compresses . keep area open and draining.i f worsening then RTC if needs another I&D Health Concerns Section Related Observation LastModified by Organization Detai ls LastModified Time None Recorded Concern Status LastModified by Organization Details LastModified Time None Recorded Advance Directives Directive None Recorded Payers Insurance Date Sequence Insurance Name Policy Number Policy Pathak Covered Member ID Pathak Member ID Guarantor Name 06/20/2025 1 [employer] [id number] Marii Rainey [id number] Marii Rainey 07/18/[address] [employer] [id number] Marii Rainey [id number] Marii Rainey Notes Date Note Type Note Provider Name and Address Organization Details Recorded Time 03/17/2025 text/html Eye PainReported by PatientHPIFor quality, patient reportsaching. For associated symptoms, patient reportspain worse with eye movement,redness,water y discharge,mucous discharge, andswelling around eyesbut reportsno sensitivity to light. For location, patient reportsleft. For severity, patient reportsmoderate. For duration, patient reportsconstant. For onset/timing, patient [id number] ago.ROS as noted in the [facility]PI walk-in. Patient complains of feeling like she was getting a stye in the lower left eyelid starting earlier this week. Has no changes in vision. Discharge present in the AM when waking. Became concerned with increased edema under the left eye today. ALESSIO SIMPSON [address] [place] [address], [phone], [facility] LAdryanLAdryanC. 03/17/2025 13:46:44 04/10/2025 text/html ROS as noted in the HPI walk inPt accidentally fell with the ladder at home 6 days ago. Fell on her right side. States her wrist/hand have been hurting since. No pain elsewhere. ALESSIO NOLAND [address] [place] [address], [phone], [facility] 04/11/2025 12:25:59 05/24/2025 text/html Annual WellnessReported by PatientSocial/Behavior al HistoryFor diet and nutrition, patient reportshealthy diet. For fracture risk, patient reportsno history of fracturesandno recent explained fracture. For physical activity, patient reportsexercises on a regular basisandgood physical condition. For additional lifestyle factors, patient reportsno tobacco useandno alcohol intake.Mental Status:For depression risk, patient reportsnever feels sad, empty, or tearful,no loss of interest in activities,no agitation,no loss of energy,no thoughts of suicide,no history of depression, andno history of mood disorders.Functional AbilityFor hearing, patient reportsno loss of hearing. For vision, patient reportsno vision problems. Musculoskeletal PainReported by PatientHPIFor quality, patient reportssharp,tingling, anddull. For severity, patient reportsworsening. For associated symptoms, patient reportsweak limbs. For location, patient reportsbilateral wristandright foot. For duration, patient reportspresent for >12 months. For timing, patient reportsconstant. For aggravating factors, patient reportsmovement/positi oning,bending over, andtwisting. For adls affected, patient reportswalking,sweepin g,mopping,bathing,dres sing, andclimbing stairs.heel pain hte the R foot. Eye PainReported by PatientHPIFor quality, patient reportsforeign body sensation. For location, patient reportsleft. For severity, patient reportsmoderate. For duration, patient reportsconstant. For onset/timing, patient reports___ hours ago(3 months her stye has not gone away). establish with Caroline used ointment from walk in in March because made eye blurry bump still there. I would like to see if I need a referral to dermatology CAROLINE SUE PA-C [address] [place], [address], [facility] [place] 05/24/2025 10:53:29 06/13/2025 text/html ROS as noted in the [facility] walk-in; PCP Caroline Sue Patient states she woke up Wednesday with her right breast sore into her armpit. Yesterday morning she woke up with a hard sore spot on the right groin area, in her panty line. The spotin the right groin has grown throughout the day yesterday and is red around it, tender with some warmth. ALESSIO SIMPSON [address] [place], [address], [facility], [place]. 06/13/2025 11:37:22 06/20/2025 text/html Skin LesionRepor eliu by PatientHPIFor location, patient reportsgroin. For quality, patient reportspainful,tender, sore, andgrowing rapidly. For severity, patient reportsmoderate. For duration, patient reports4 days. For timing, patient reportsconstant. For context, patient reportsno known trigger. For alleviating factors, patient reportsoral antibiotics. walkin/er follow up abscessI&D at the ER. and placed on clindamycin. much improvement. still some drainage but redness and swelling is resolving. CAROLINE SUE PA-C [address] [place], [address], [facility], [place]. 06/20/2025 15:38:44 OBGyn Episode No OBEpisode recorded.
[2025-07-22 09:18] VITALS: BP 132/89; PULSE 89; RESP 18; TEMP 36.7; O2SAT 100; BMI 29.7
--- NOTE | 2025-07-22 09:26 | ED_ITS ---
HPI - Nausea/Vomiting/Diarrhea 2 General: Chief complaint: Nausea/Vomiting/Diarrhea Stated complaint: dehyration Time Seen by Provider: 07/22/25 09:18 History of Present Illness: 60-year-old female presents to the emerg ency room with complaints of abdominal pain cramping she is having vomiting and diarrhea. She was diagnosed with C. difficile 2 days ago she had previously been on antibiotics for cellulitis in her right groin. She has not had any fever. She has a lot of lower abdominal cramping and then will have diarrhea stool. She has not had any hematochezia or melena. Associated nausea: Yes Associated symtoms: Reports fatigue, malaise and nausea; Denies chest pain or dysuria Related Data Home Medications ?Medication ?Instructions ?Recorded ?Confirmed loratadine 10 mg tablet (Claritin) 10 mg PO DAILY PRN allergies 07/20/25 07/20/25 Previous Rx's ?Medication ?Instructions ?Recorded ondansetron 4 mg disintegrating 4 mg PO TID PRN nausea and 07/20/25 tablet vomiting #60 tabs vancomycin 125 mg capsule 125 mg PO Q6H 10 days #40 ca ps 07/20/25 Allergies Allergy/AdvReac Type Severity Reaction Status Date / Time Sulfa (Sulfonamide Allergy extreme Verified 11/07/20 10:58 Antibiotics) itchiness, hives Review of Systems 2 Const: Reports: fatigue and malaise; Denies: fever(s) or chills Card: Denies: chest pain Resp: Denies: dyspnea GI: Reports: abdominal pain, nausea, vomiting and diarrhea : Denies: dysuria, urinary frequency or urinary urgency Musc: Denies: neck pain or back pain Skin/Breast: Denies: rash PFSH ED 2 PFSH: Medical History Perimenopause Atypical ductal hyperplasia of left breast Found on needle biopsy of the left breast. Excisional biopsy performed with no hyperplasia noted (per patient). Was started on tamoxifen in 07/2017. Surgical History S/P breast biopsy, right (~1985) Status post surgery (~1997) Abdominal wall mass excision. H/O lumpectomy (04/01/17) Dr. Lockett at [facility] in [place], [place]. H/O section (04/11/97) Diagnosis: Cephalopelvic disproportion. Performed by Dr. Up at [facility] in [place], [place]. S/P rhinoplasty Family History Other Adopted Social History Smoking and tobacco/nicotine status: never used tobacco/nicotine Alcohol intake: never Substance/Drug Use: never Physical Exam 2 Const: GENERAL APPEARANCE: cooperative ORIENTATION/CONSCIOUSNESS: Yes awake, Yes oriented to person, Yes oriented to place and Yes oriented to time HENMT: COMMON NORMALS: normocephalic, atraumatic and hearing grossly normal bilaterally HEAD & SCALP: normocephalic and atraumatic Resp: COMMON NORMALS: normal respiratory effort, No retractions, No use of accessory muscles and clear to auscultation bilaterally AUSCULTATION: clear to auscultation bilaterally Cardio: COMMON NORMALS: regular rate, regular rhythm and No murmurs present (Cardio) RATE: regular rate RHYTHM: regular rhythm GI: COMMON NORMALS: Soft to palpation and No hepatosplenomegaly present A USCULTATION: Yes normoactive bowel sounds PALPATION: Yes Soft to palpation, No Tenderness to palpation present (GI), No Guarding due to palpation present (GI) and Yes No hepatosplenomegaly present Extremity: COMMON NORMALS: normal to inspection, capillary refill normal, no clubbing, cyanosis or edema, no calf tenderness and no pedal edema Neuro: SENSORIUM/ORIENTATION: Yes oriented to person, Yes oriented to place and Yes oriented to time Skin: COMMON NORMALS: no rashes or lesions noted GENERAL SKIN EXAM: no rashes or lesions noted Course 2 Vital Signs: Vital signs: Vital Signs Temperature 98.1 F 07/22/25 09:18 Pulse Rate 88 07/22/25 12:08 Respiratory Rate 16 07/22/25 10:49 Blood Pressure 0/0 07/22/25 12:08 Pulse Oximetry 98 07/22/25 12:08 Oxygen Delivery Me thod Room Air 07/22/25 09:18 MDM - Nausea/Vomiting/Diarrhea Medical Decision Making Patient feeling much better after IV fluids abdominal exam benign laboratory test reviewed no significant abnormalities. Discharge patient home continue vancomycin she says the ondansetron is working well offered other antiemetic she declined. Simple carbohydrate diet and to follow-up with primary care next week. Return if has bloating fever or bloody diarrhea Medical Records I reviewed the patient's medical records. Lab Data I reviewed the patient's lab results. 07/22/25 09:40 07/22/25 09:40 Laboratory Results WBC 8.88 10^3/uL (3.29-11.43) 07/22/25 09:40 RBC 4.86 10^6/uL (3.85-5.65) 07/22/25 09:40 Hgb 13.90 g/dL (11.27-16.99) 07/22/25 09:40 Hct 41.4 % (36-47) 07/22/25 09:40 MCV 85.2 fl (85-98) 07/22/25 09:40 MCH 28.6 pg (27-33) 07/22/25 09:40 MCHC 33.6 g/dL (30-55) 07/22/25 09:40 RDW 13.5 % (12.1-15.1) 07/22/25 09:40 Plt Count 195 10^3/cmm (157-399) 07/22/25 09:40 MPV 9.6 fL (7.4-10.4) 07/22/25 09:40 Neut % (Auto) 82.2 % 07/22/25 09:40 Lymph % (Auto) 8.8 % 07/22/25 09:40 Nash % (Auto) 6.8 % 07/22/25 09:40 Eos % (Auto) 0.8 % 07/22/25 09:40 Baso % (Auto) 0.8 % 07/22/25 09:40 Neut # (Auto) 7.31 10^3/uL (1.8-7.7) 07/22/25 09:40 Lymph # (Auto) 0.8 10^3/uL (0.8-4.8) 07/22/25 09:40 Nash # (Auto) 0.6 10^3/uL (0.2-0.9) 07/22/25 09:40 Eos # (Auto) 0.1 10^3/uL (0.0-0.8) 07/22/25 09:40 Baso # (Auto) 0.1 10^3/uL (0.0-0.1) 07/22/25 09:40 Nucleated RBC % (auto) 0 % 07/22/25 09:40 Nucleated RBCs # 0.0 /100WBC 07/22/25 09:40 Sodium 138 mmol/L (136-145) 07/22/25 09:40 Potassium 3.4 mmol/L (3.5-5.1) L 07/22/25 09:40 Chloride 102 mmol/L (98-107) 07/22/25 09:40 Carbon Dioxide 18 mmol/L (22-29) L 07/22/25 09:40 Anion Gap 21.4 (5-19) H 07/22/25 09:40 BUN 15 mg/dL (6-20) 07/22/25 09:40 Creatinine 0.6 mg/dL (0.5-0.9) 07/22/25 09:40 GFR Calculation 102.7 mL/min (90-130) 07/22/25 09:40 Glucose 106 mg/dL (65-115) 07/22/25 09:40 Calculated Osmolality 287 mOsm/kg (285-295) 07/22/25 09:40 Calcium 9.0 mg/dL (8.5-10.5) 07/22/25 09:40 Total Bilirubin 0.2 mg/dL (0.15-1.2) 07/22/25 09:40 AST 17 U/L (0-32) 07/22/25 09:40 ALT 11 U/L (0-33) 07/22/25 09:40 Alkaline Phosphatase 80 U/L (35-105) 07/22/25 09:40 Total Protein 6.3 g/dL (6.6-8.7) L 07/22/25 09:40 Albumin 3.8 g/dL (3.5-5.2) 07/22/25 09:40 Globulin 2.5 g/dL (1.3-4.6) 07/22/25 09:40 Urine Color Yellow (Yellow) 07/22/25 10:41 Urine Appearance Cloudy (CLEAR) A 07/22/25 10:41 Urine pH 5 (5-7) 07/22/25 10:41 Ur Specific [place] 1.025 (1.005-1.030) 07/22/25 10:41 Urine Protein 1+ (Negative) H 07/22/25 10:41 Urine Glucose (UA) Norm (Normal) 07/22/25 10:41 Urine Ketones 3+ (Negative) H 07/22/25 10:41 Urine Blood 2+ (Negative) H 07/22/25 10:41 Urine Nitrate Negative (Negative) 07/22/25 10:41 Urine Bilirubin 1+ (Negative) H 07/22/25 10:41 Urine Urobilinogen Neg mg/dL (Negative) 07/22/25 10:41 Ur Leukocyte Esterase Negative (Negative) 07/22/25 10:41 Urine RBC 5-10 /hpf (0-2) H 07/22/25 10:41 Urine WBC 5-10 /hpf (0-5) H 07/22/25 10:41 Ur Squamous Epith Cells 10-15 /hpf (0-5) H 07/22/25 10:41 Amorphous Sediment Not Reportable 07/22/25 10:41 Urine Bacteria 1+ /hpf (NONE) H 07/22/25 10:41 Hyaline Casts 5-10 /lpf H 07/22/25 10:41 Urine Mucus 2+ /hpf 07/22/25 10:41 No radiology studies performed this visit Discharge Plan Discharge Patient Disposition: Home Clinical Impression: C. difficile colitis, Dehydration Condition: Stable Prescriptions: No Action loratadine [Claritin] 10 mg Tablet 10 mg PO DAILY PRN (Reason: allergies) vancomycin 125 mg capsule 125 mg PO Q6H 10 Days Qty: 40 0RF ondansetron 4 mg tablet,disintegrating 4 mg PO TID PRN (Reason: nausea and vomiting) Qty: 60 0RF Discharge Orders: Discharge ED (Routine); Ordered 07/22/25 Ordered By: Spencer Mckeon Referrals: Caroline Sue PA [Primary Care Provider, Physicians Supervisor Powdered Sugar] Discharge Diet: Clear Liquid Discharge Activity: Increase activity as tolerated Patient Instructions: C. Diff (Clostridioides Difficile) Infection (ED), Opioid Safety, Pain Management, Patient Portal & Gem Instructions Activity Restrictions/Additional Instructions: Thank you for choosing [facility] for your healthcare needs today. It is very important that you follow up as instructed or that you return to the Emergency Department should you have concerns or if your condition changes or worsens in any way. Emergency department visits are focused on emergent conditions, in some cases you may require further evaluation on an outpatient basis. You were seen in the emergency room with complaints of generalized weakness and excessive diarrhea related to your recent diagnosis of C. difficile. It is not unusual that anything eat for it to precipitate a loose mucousy stool when you have the C. difficile colitis. Continue your IV antibiotics continue frequent small amounts of fluids. Simple carbohydrate diet. You can use ondansetron for nausea. If you begin to have bloody stools return to the emergency room. (Please note that included in your discharge packet is information concerning opioid safety and pain management. This information is given to all patients were discharged from the ER regardless of their discharge diagnosis or the medicines they usually take or are prescribed.) Print Language: Angolan Coding Level of Care Code ED Bread Dumper for Parag Llanos
[2025-07-22 09:54] LABS: Hematocrit 41.4 % (36-47); Hemoglobin 13.90 g/dL (11.27-16.99); Mean Corpuscular HGB Conc 33.6 g/dL (30-55); Mean Corpuscular Hemoglobin 28.6 pg (27-33); Mean Corpuscular Volume 85.2 fl (85-98); Nucleated Red Blood Cells % 0 %; Platelet Count 195 10^3/cmm (157-399); Red Blood Count 4.86 10^6/uL (3.85-5.65); White Blood Count 8.88 10^3/uL (3.29-11.43)
[2025-07-22 10:08] LABS: Alanine Aminotransferase 11 U/L (0-33); Albumin Level 3.8 g/dL (3.5-5.2); Alkaline Phosphatase 80 U/L (35-105); Anion Gap 21.4 (5-19); Aspartate Amino Transferase 17 U/L (0-32); Blood Urea Nitrogen 15 mg/dL (6-20); Calcium 9.0 mg/dL (8.5-10.5); Carbon Dioxide 18 mmol/L (22-29); Chloride 102 mmol/L (98-107); Creatinine Clr Calc Pharmacy 99.9059; Globulin 2.5 g/dL (1.3-4.6); Glucose 106 mg/dL (65-115); Osmolality Calculated 287 mOsm/kg (285-295); Potassium 3.4 mmol/L (3.5-5.1); Sodium 138 mmol/L (136-145); Total Protein 6.3 g/dL (6.6-8.7)
[2025-07-22 10:49] VITALS: BP 119/71; PULSE 94; RESP 16; O2SAT 99
[2025-07-22 11:07] LABS: Add Urine Microscopic? YES; Glucose Urine UA Norm (Normal); Nitrate Urine Negative (Negative); Specific Gravity, Urine 1.025 (1.005-1.030)
[2025-07-22 12:08] VITALS: BP 0/0; PULSE 88; O2SAT 98
== END 2025-07-22 12:09 | disposition home or self-care (01) ==
PROVIDERS: Emergency Provider Family Medicine; PCP Physician Assistant
DX: A04.71 Enterocolitis due to Clostridium difficile, recurrent (principal); E86.0 Dehydration
CPT/HCPCS: 36415; 80053; 81001; 85025; 96374; 99284; J0780; J7030